=== PATIENT | male | born 1995 | race Caucasian/White ===

== ENCOUNTER 2023-01-29 11:07 | Emergency (ER) | payer BC, SELFPAY ==
[2023-01-29 11:08] VITALS: BP 140/77; PULSE 96; RESP 17; TEMP 36.8; O2SAT 99
[2023-01-29 12:59] VITALS: BP 126/80; O2SAT 99
[2023-01-29 13:01] VITALS: BP 130/83; O2SAT 100
[2023-01-29] MEDS: KETOROLAC 30 MG/ML VIAL (*BKC) IV PUSH (13:05)
[2023-01-29] MEDS: METOCLOPRAMIDE HCL INJ 10 MG/2 ML VIAL IV PUSH (13:05)
[2023-01-29] MEDS: SODIUM CHLORIDE 0.9% IV 1,000 ML 999 ML IV CONT (13:06)
[2023-01-29] MEDS: Please add drug allergy info to patient profile. XX (13:06)
[2023-01-29] MEDS: ACETAMINOPHEN 500 MG TABLET 1000 MG PO (13:06)
[2023-01-29] MEDS: diphenhydrAMINE HCl INJ 50 MG/ML VIAL 25 MG IV PUSH (13:06)
--- NOTE | 2023-01-29 13:11 | ED.HA ---
HPI - Headache General Chief Complaint: Headache Stated Complaint: migraine Time Seen by Provider: 01/29/23 11:50 Source: patient Mode of arrival: ambulatory Limitations: no limitations History of Present Illness HPI Narrative: Patient is a 27 y/o male who presents to the ED with report of a headache. Patient reports the headache began on Friday evening and has been a constant dull aching sensation with intermittent worsening of pain since then. He describes the pain as though his head is a balloon and there is a belt wrapped around his temporal region. He notes a history of migraines and states this feels similar, but states they do not typically last this long. He has tried Tylenol, Excedrin, his mother's pain medicine without relief. He has not taken anything for pain today. He reports photophobia, phonophobia, nausea, vomiting, mild dizziness. Denies neck pain or fever. Denies weakness, numbness, cough or cold symptoms, abdominal pain, vision changes. Related Data Allergies Allergy/AdvReac Type Severity Reaction Status Date / Time No Known Allergies Allergy Verified 01/29/23 13:04 Review of Systems Review of Systems: CONSTITUTIONAL: Denies fever, chills, or sweats. EYES: Reports photophobia. Denies visual changes. ENT: Reports phonophobia. Denies rhinorrhea, congestion, sore throat. CARDIOVASCULAR: Denies chest pain. RESPIRATORY: Denies cough or dyspnea. GASTROINTESTINAL: See HPI. MUSCULOSKELETAL: Denies back pain, neck pain. NEUROLOGIC: See HPI. All systems reviewed & are unremarkable except as noted in HPI and below Exam Narrative: GENERAL: Well appearing, well-nourished, non-toxic, in no acute distress. HEAD: Normocephalic, atraumatic. EYES: PERRLA/EOMI, conjunctiva clear. No nystagmus. NECK: Supple. No adenopathy, no masses. No meningeal signs. RESPIRATORY: Airway patent, respirations nonlabored. Clear to auscultation bilaterally, no rales, rhonchi, wheezing. CARDIOVASCULAR: Regular rate and rhythm without murmurs, rubs, or gallops. Radial pulses 2+ and equal bilaterally. ABDOMINAL: Soft, nontender, nondistended, no hepatosplenomegaly. Normoactive BS. MUSCULOSKELETAL: Moves all extremities. Strength/ROM intact without gross deformities. SKIN: Warm, dry, normal color. No rashes. NEURO: A&O X3. Speech clear. Cranial nerves II-XII grossly intact. Steady gait. No ataxic movements. No focal neurologic deficits. Moves all extremities equally. PSYCHIATRIC: Appropriate mood and affect. Normal interaction. Course Vital Signs Vital signs: Vital Signs Temperature 98.2 F 01/29/23 11:08 Pulse Rate 96 01/29/23 11:08 Respiratory Rate 17 01/29/23 11:08 Blood Pressure 140/77 01/29/23 11:08 Pulse Oximetry 99 01/29/23 11:08 Oxygen Delivery Room Air 01/29/23 11:08 Temperature 98.2 F 01/29/23 11:08 Pulse Rate 96 01/29/23 11:08 Respiratory Rate 17 01/29/23 11:08 Blood Pressure 140/77 01/29/23 11:08 Pulse Oximetry 99 01/29/23 11:08 Oxygen Delivery Room Air 01/29/23 11:08 MDM - Headache MDM Narrative Medical decision making narrative: Patient presented to ED with several day history of migraine. History of migraines. Patient's headache was not sudden in onset or maximal in severity. There are no focal neurological deficits on exam. Subarachnoid hemorrhage is felt to be unlikely at this time. There is no history of fever and neck is supple on evaluation without meningeal signs. Meningitis is felt to be unlikely. No traumatic history or signs of trauma on evaluation. No vision changes or ocular signs of acute glaucoma. Patient feeling much better after migraine cocktail. MULLEN nearly resolved. Patient's headache is felt to be benign cephalgia and reasonable for further outpatient management. Advised patient to follow with PCP and/or neurology for further evaluation. Given reasons to return. D/C in stable condition. Medical Records Attestation: I reviewed the patient's medic
[2023-01-29 14:58] VITALS: BP 122/78; PULSE 76; RESP 16; TEMP 36.8; O2SAT 98
== END 2023-01-29 14:59 | disposition home or self-care (01) ==
PROVIDERS: Emergency Provider Physician Assistant
DX: G43.909 Migraine, unspecified, not intractable, without status migrainosus (principal)
CPT/HCPCS: 96361; 96374; 96375; 99284; A9270; J1100; J1200; J1885; J2765; J7030

== ENCOUNTER 2024-11-03 21:17 | Emergency (ER) | payer SELFPAY ==
--- NOTE | ~2024-11-03 | XR_ITS ---
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 Comparison: None. FINDINGS: MEDIASTINUM: The cardiac silhouette is not enlarged. LUNGS: No infiltrates, effusions or pneumothorax. OTHER: No free air under the diaphragm. IMPRESSION: No acute cardiopulmonary pathology. Reviewed, dictated and finalized at location A.
--- NOTE | 2024-11-03 21:32 | ECG_ITS ---
Test Date: 2024-11-03 21:52:40 Measurements Intervals [place] Rate: 78 P: 64 IN: 164 QRS: 73 QRSD: 96 T: 49 QT: 350 QTc: 401 Interpretive Statements SINUS RHYTHM EARLY REPOLARIZATION [ST ELEVATION WITH NORMALLY INFLECTED T WAVE] No previous ECG available for comparison Electronically Signed On 11-04-2024 11:49:09 CDT by Rinku Molina M.D.
[2024-11-03 21:45] VITALS: BP 109/68; PULSE 72; RESP 16; TEMP 36.6; O2SAT 98
[2024-11-03 22:01] LABS: Hematocrit 42.4 % (42.0-52.0); Hemoglobin 14.3 g/dL (14.0-18.0); Immature Granulocyte Percent A 0.3 % (0-0.5); Lymphocytes Absolute Auto 3.83 K/mm3 (0.9-3.2); Mean Corpuscular HGB Conc 33.7 g/dl (32-36); Mean Corpuscular Hemoglobin 31.4 pg (26-34); Mean Corpuscular Volume 93.2 fl (80-100); Nucleated Red Blood Cells Absolute Auto 0.000 K/mm3 (0.0-0.012); Nucleated Red Blood Cells Perc 0.0 % (0.0-0.2); Platelet Count Result 248 k/mm3 (150-375); Red Blood Count 4.55 M/mm3 (4.6-6.20); White Blood Count 10.0 K/mm3 (4.5-10.0)
[2024-11-03 22:12] LABS: INR 1.0; Partial Thromboplastin Time 26.0 Seconds (22.3-36.8); Prothrombin Time 13.1 Seconds (11.1-14.7)
[2024-11-03 22:13] LABS: Alanine Aminotransferase 25 U/L (6-50); Albumin Level 4.8 g/dL (3.5-5.1); Alkaline Phosphatase 52 U/L (38-126); Anion Gap 15 mmol/L (4-12); Aspartate Amino Transferase 28 U/L (17-59); Bilirubin,Total 1.2 mg/dL (0.2-1.3); Blood Urea Nitrogen 16 mg/dL (9-20); Calcium 9.3 mg/dL (8.4-10.2); Carbon Dioxide 21 mmol/L (22-30); Chloride 100 mmol/L (98-107); Estimated CRCL calculation 118 ml/min; Estimated Glomerular Filt Rate > 60; Glucose 92 mg/dL (65-110); Lipase 310 U/L (23-300); Potassium 3.8 mmol/L (3.4-5.0); Sodium 136 mmol/L (137-145); Total Protein 7.8 g/dL (6.3-8.2)
[2024-11-03 22:24] LABS: Troponin I < 0.012 ng/mL (0.000-0.034)
== END 2024-11-03 23:57 | disposition left against medical advice (07) ==
LOC: ANHED 23:50
PROVIDERS: Emergency Provider Emergency Medicine
DX: R07.9 Chest pain, unspecified (principal)
CPT/HCPCS: 36415; 71046; 80053; 83690; 84484; 85025; 85610; 85730; 93005; 99199